=== PATIENT | female | born 1995 ===

== ENCOUNTER 2018-06-04 01:21 | Emergency (ER) | payer OTHER ==
[2018-06-04 01:58] VITALS: BMI 29.0
[2018-06-04] MEDS ORDERED: Bicitra 30 ML UD PO ONE (02:04)
--- NOTE | 2018-06-04 02:59 | OBDCSUM ---
Datetime: 06/04/2018 02:42 Discharged to, Provider: Home Follow up at, Provider: [facility] Disch Instr Activity: Normal activity Disch Instr Diet: Regular Discharge Time: 06/04/2018 02:43 Follow up in weeks, Provider: 06/04/2018 Disch Referrals: None Disch Activity Restrictions: No lifting Discharge Diagnosis Prov Other: epigatric pain
--- NOTE | 2018-06-04 02:59 | OBHP ---
Datetime: 06/04/2018 02:54 IP Adm Impression: Term, intrauterine IP Chief Complaint Other: epigastric pain IP Admit Plan: Observation/Evaluation; Discharge home Admit Comment, IP Provider: Patient is a @ 38 wks with epgastric pain. Patient denies VB, leaki ng, +FM, no cttxns, no antepartum/surgical issues, no medicaltions, no medical problems. VBZ=165 mod yassine, +accels, no decesl, irregular contractions. Patient reported epigastric pain started after eatin g fatty food. VSS, no vomiting, diarrhea. Patient received bicitra and felt better, was discharged ho ma, follow up in clinc today Pelvic Type - PN: Adequate Extremities - PN: Normal Abdomen - PN: Normal Back - PN: Normal Breast - PN: Normal Lungs - PN: Normal Heart - PN: Normal Thyroid - PN: Normal Neurologic - PN: Normal HEENT - PN: Normal General - PN: Normal FHR - Baseline A Provider: 150 Vital Signs Provider: Reviewed; Within Normal Limits NICHD Variability Prov Fetus A: Moderate 6-25bpm NICHD Accel Fetus A IP Provider: 15X15 Genitourinary Exam: Normal DTRs - PN: Normal
[2018-06-04 06:57] VITALS: BP 117/68; PULSE 94
== END 2018-06-04 02:53 | disposition home or self-care (01) ==
LOC: H.EROB2 01:21
DX: O26.93 Pregnancy related conditions, unspecified, third trimester (principal); R10.2 Pelvic and perineal pain; Z3A.38 38 weeks gestation of pregnancy

== ENCOUNTER 2018-07-02 11:34 | Emergency (ER) | payer OTHER ==
[2018-06-25 13:27] VITALS: BMI 29.0
--- NOTE | 2018-07-02 16:01 | OBHP ---
Datetime: 07/02/2018 12:52 IP Adm Impression: Term, intrauterine ; No Active Labor IP Admit Plan: Observation/Evaluation; Discharge home Admit Comment, IP Provider: Pt is a 23 yo female IUP @ 39.6 weeks LYDIA is 07/03/18 based on LMP of 09/26/17 and U/S 11/23/17. Pt here for contractions/abdominal pain since 2AM described as 03/30. Pt say s she noticed some vaginal bleeding which resolved. Pt denies fevers, dizziness, headache, blurry vis ion, chest pain, SOB, nausea, vomiting, diarrhea, constipation, dysuria, Reports good movement. PNP: Dr. 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 Lungs: clear to auscultation bilaterally, no wheezing, rales or rhonchi Abdomen: Gravid LE: negative for edema Bimanual-2cm dilated Heart Rate: 140, moderate 6-25bpm, category 1, 15x15 A/P: Pt is a 23 yo female IUP @ 39.6 weeks here for contractions -Observed in [facility] -Monitor heart tracing -Bimanual 2cm dilated -Not in active labor -D/c home with ED precautions, if contractions occur closer together, ROM, fever, or vaginal bleed ing come back to ED Case reviewed and discussed with Attending Zoe Recinos M.D.-PGY-[address] Connelly: I have evaluated the patient independently and I agree with the above Pelvic Type - PN: Adequate Extremities - PN: Normal Abdomen - PN: Normal Back - PN: Not Done Breast - PN: Not Done Lungs - PN: Normal Heart - PN: Normal Thyroid - PN: Not Done Neurologic - PN: Not Done HEENT - PN: Normal General - PN: Normal FHR - Baseline A Provider: 140 Comments, ACOG Physical Exam: Abdomen: Gravid Bimanual-2cm dilated IP Hx Assessment: The History has been Reviewed and is Current EGA AdmitDate IP: 39.6 Vital Signs Provider: Reviewed; Within Normal Limits IP Chief Complaint: Uterine contractions NICHD Variability Prov Fetus A: Moderate 6-25bpm NICHD Accel Fetus A IP Provider: 15X15 FHR Category Provider Fetus A: Category I NICHD Decel Fetus A IP Provider: None (Annotations: Data stored by CPN on behalf of user) Dilatation, Provider: 2 Genitourinary Exam: Normal DTRs - PN: Not Done
--- NOTE | 2018-07-02 16:03 | OBDCSUM ---
Datetime: 07/02/2018 12:36 Discharged to, Provider: Home Follow up at, Provider: [facility] Disch Instr Activity: Normal activity Disch Instr Diet: Regular Discharge Instructions, Provider: Routine instructions given Discharge Time: 07/02/2018 12:36 Follow up in weeks, Provider: 07/02/18 Disch Referrals: None Contraception discussed, Prov: Yes Discharge Diagnosis Prov Other: false labor
[2018-07-02 17:06] VITALS: BP 127/63; PULSE 82; TEMP 98.8; O2SAT 100
== END 2018-07-02 12:20 | disposition home or self-care (01) ==
LOC: H.EROB2 11:34 → H.EROB 11:57 → H.EROB2 12:20
DX: O26.93 Pregnancy related conditions, unspecified, third trimester (principal); R10.2 Pelvic and perineal pain; O26.853 Spotting complicating pregnancy, third trimester; Z3A.39 39 weeks gestation of pregnancy; O47.1 False labor at or after 37 completed weeks of gestation

== ENCOUNTER 2018-07-03 14:57 | Emergency (ER) | payer OTHER ==
[2018-06-25 13:27] VITALS: BMI 29.0
[2018-07-04 01:17] VITALS: BP 131/87; PULSE 91; RESP 18; TEMP 98.2; O2SAT 99
== END 2018-07-03 15:50 | disposition home or self-care (01) ==
LOC: H.EROB2 14:57
DX: O26.93 Pregnancy related conditions, unspecified, third trimester (principal); R10.2 Pelvic and perineal pain; Z3A.40 40 weeks gestation of pregnancy; O48.0 Post-term pregnancy

== ENCOUNTER 2018-07-04 02:00 | Inpatient (IN) | payer OTHER ==
[2018-07-04 03:23] VITALS: BMI 31.2
[2018-07-04] MEDS ORDERED: Lactated Ringer's 1,000 ML IV ONE (03:47)
[2018-07-04 04:58] VITALS: O2SAT 100
[2018-07-04] MEDS: Lactated Ringer's 1,000 ML IV SCH ×3 (05:20→16:00)
[2018-07-04 05:49] LABS: BASO % 0.1 % (0.0-2.0); LYMPH # 1.1 K/uL (1.0-4.3); LYMPH % 10.8 % (20.0-40.0); MEAN CELL VOLUME 84.8 fl (81.0-99.0); MEAN CORPUSCULAR HEMOGLOBIN 27.5 pg (27.0-31.0); MEAN CORPUSCULAR HGB CONC 32.4 g/dL (33.0-37.0); MEAN PLATELET VOLUME 10.3 fl (7.2-11.7); MONO # 0.4 K/uL (0.0-0.8); MONO % 4.1 % (0.0-10.0); NEUT # 8.7 K/uL (1.8-7.0); NRBC % 0.1 % (0.0-0.0); RBC 4.38 Mil/uL (3.80-5.20); RED CELL DISTRIBUTION WIDTH 13.9 % (11.5-14.5); WHITE BLOOD COUNT 10.3 K/uL (4.8-10.8)
[2018-07-04] MEDS ORDERED: Fentanyl/Bupivacaine HCl 250 ML EPI ONE (07:58)
--- NOTE | 2018-07-04 08:03 | OBADHP ---
Datetime: 07/04/2018 02:57 Admit Comment, IP Provider: [employer]- [id number] 23 y/o at 40.1 wks with LYDIA of 07/03/2018 c/o contractions since 7pm occurring every 7 minute s. She was seen here yesterday for similar complaints, was checked and found to be 2cm dilated. Since then she has noticed some spotting, but denied any loss of fluid. She endorses +FM. She denies any f /c/n/v/d/dysuria. OBGYNhx: current complicated with +chlamydia- treated 06/04 PMH: denies Allergies: NKA Surghx: left ovarian cystectomy in 2014 Sochx: Denies EtOH, cigarette or elicit drug use Gen: patient awake and alert grimacing with pain Cardio: s1s2 RRR Lungs: Resp effort wnl Abd: Gravid, BS+ Pelvic: 2-3cm, 90%, -3 Ext: calves nontender A/P: 23 y/o at 40.1 wks with LYDIA of 07/03/2018 c/o contractions. -Wireless monitoring -Encouraged ambulation -Re-check for cervical progression in 1 hr; if no change discharge home with labor precautions; If change present, admit. -No cervical change, but patient is tearful with pain -Admit to unit with initiation of labor protocol -Nitrous oxide -water enema Patient seen and evaluated with Dr. Iron Gill, PGY-1 OB Hospitalist on-call. With PGY1, I saw this patinet and agree with note MAHNDO Admit for pain management Extremities - PN: Normal Abdomen - PN: Normal Lungs - PN: Normal Heart - PN: Normal General - PN: Normal Presentation-Admit: Vertex FHR - Baseline A Provider: 135 Gestation - Est Wks by US: 40.1 Pool Provider: Negative IP Hx Assessment: The History has been Reviewed and is Current Vital Signs Provider: Reviewed; Within Normal Limits IP Chief Complaint: Uterine contractions NICHD Variability Prov Fetus A: Moderate 6-25bpm NICHD Accel Fetus A IP Provider: 15X15 FHR Category Provider Fetus A: Category I NICHD Decel Fetus A IP Provider: None Dilatation, Provider: 2 Effacement, Provider: 90 Station, Provider: -3 EGA AdmitDate IP: 40.1 IP Adm Impression: Term, intrauterine ; No Active Labor; Intact Membranes IP Admit Plan: Observation/Evaluation Datetime: 07/03/2018 15:45 HEENT - PN: Normal IP Fetus A Comments: Reactive NST Membranes, Provider: Intact Contraction Comments Provider: Q7-8 min Datetime: 07/02/2018 12:52 Pelvic Type - PN: Adequate Back - PN: Not Done Breast - PN: Not Done Thyroid - PN: Not Done Neurologic - PN: Not Done Comments, ACOG Physical Exam: Abdomen: Gravid Bimanual-2cm dilated Genitourinary Exam: Normal DTRs - PN: Not Done Datetime: 06/04/2018 02:54 IP Chief Complaint Other: epigastric pain
[2018-07-04] MEDS ORDERED: Oxytocin 30 UNIT 30 UNITS/500 ML BAG IV ONE (11:23)
[2018-07-04] MEDS: Oxytocin 30 UNIT 30 UNITS/500 ML BAG IV ONE ×2 (11:30→19:20)
[2018-07-04] MEDS ORDERED: OXYTOCIN/0.9 % NS 20 UNIT/1,000 ML BAG IV ONE ×2 (15:15→19:28)
[2018-07-04] MEDS ORDERED: Lidocaine 1% Inj (20ml) ONE (15:16)
[2018-07-04] MEDS ORDERED: Oxycodone/Acetaminophen 5/325 mg Tab PO PRN ×2 (19:28→22:33)
--- NOTE | 2018-07-04 20:05 | OBDS ---
DELIVERY PERSONNEL Nurse Kettle Firer Certified: samara Delivery Doctor: Dr Simpson Scrub Nurse: samara Payloader Operator: MISHEL silva and ALTA ChildressC Anesthesiologist: DR Treadwell Telemetry Monitor: samara Resident: DR Feliciano and DR Downing MATERNAL INFORMATION Delivery Anesthesia: Epidural Medications in Delivery: pitocin Estimated Blood Loss (ml): 150cc Placenta Cultured: No Maternal Complications: None RN Comments: to alive baby boy; 9/9 ; placenta deivered complete;uneventful delivery Provider Comments: Over intact perineum, of live male at 19:04 PM, Weight 3455 gm, 9/9 A PGAR. Head OA delivered first followed with delivery of right anterior shoulder in a controlled april r followed by posterior arm and body. was bulb suctioned nasopharygeally and crying spontaneou sly. Umbilical cord was cut. Skin to skin was done with mother. Placenta was delivered intact spontan eously. Perineum intact. Uterus firm and appropriately hemostatic following delivery. Pt tolerated de livery well. No Complications. QBL 150 mL. Patient and baby remained stable. Case with Dr. Simpson --- John Feliciano MD PGY-2 LABOR SUMMARY EDC: 07/03/2018 00:00 No. Babies in Womb: 0 Attempted: No Labor Anesthesia: Epidural LABOR INFORMATION Onset of Labor: 07/03/2018 05:00 Complete Dilatation: 07/04/2018 17:20 Oxytocin: Augmentation Group B Beta Strep: Negative Antibiotics # of Doses: 1 Antibiotics Time of Last Dose: 0847 azithromycin MEMBRANES Membranes Rupture Method: Artificial Rupture of Membranes: 07/04/2018 14:35 Length of Rupture (hrs): 4.48 Amniotic Fluid Color: Clear Amniotic Fluid Amount: Moderate Amniotic Fluid Odor: Normal STAGES OF LABOR Stage 1 hrs: 36 Stage 1 min: 20 Stage 2 hrs: 1 Stage 2 min: 44 Stage 3 hrs: 0 Stage 3 min: 13 Total Time in Labor hrs: 38 Total Time in Labor min: 17 VAGINAL DELIVERY Episiotomy: None Laceration Extension: N/A Laceration Type: None Laceration Repair: Not Applicable Laceration Repair Note: none Initial Vag Sponge Count: 5 Final Vag Sponge Count: 5 Initial Vag Sharps Count: 1 Final Vag Sharps Count: 1 Sponge Count Correct: Yes Sharps Count Correct: Yes Count Comment: 1 needle BABY A INFORMATION Infant Delivery Date/Time: 07/04/2018 19:04 Method of Delivery: Vaginal Born in Route : No : N/A Forceps: N/A Vacuum Extraction: N/A Shoulder Dystocia : No SHOULDER DYSTOCIA BABY A Delivery Date/Time: 07/04/2018 19:04 PRESENTATION/POSITION BABY A Presentation: Cephalic Cephalic Presentation: Vertex Vertex Position: Left Occipital Anterior Breech Presentation: N/A PLACENTA INFORMATION BABY A Placenta Delivery Time : 07/04/2018 19:17 Placenta Method of Delivery: Spontaneous Placenta Status: Delivered SCORES BABY A Heart Rate 1 min: >100 bpm Resp Effort 1 min: Good Cry Reflex Irritability 1 min: Cough or Sneeze or Pulls Away Muscle Tone 1 min: Active Motion Color 1 min: Body Luis M. Cintron, Extremities Blue SCORE 1 MIN: 9 Heart Rate 5 min: >100 bpm Resp Effort 5 min: Good Cry Reflex Irritability 5 min: Cough or Sneeze or Pulls Away Muscle Tone 5 min: Active Motion Color 5 min: Body Luis M. Cintron, Extremities Blue SCORE 5 MIN: 9 INFORMATION BABY A Gestational Age at Delivery: 40.0 Gestational Status: Term Outcome : Liveborn Condition : Stable Infant Sex: Male IDENTIFICATION/MEDS BABY A ID Band Number: [id number] ID Band Location: Right Leg; Right Arm CORD INFORMATION BABY A No. Cord Vessels: 3 Nuchal Cord : N/A Nuchal Cord Other: na True Knot: na Infant Cord pH Baby Arterial: na Cord pH Baby Venous: na Cord Blood Taken: Yes Banking/Donate Info: na Suction: None
[2018-07-04] MEDS ORDERED: Lactated Ringer's 1,000 ML IV SCH (22:33)
[2018-07-05] MEDS ORDERED: Hepatitis B Vaccine 20 mcg/mL Inj IM ONE (06:35)
[2018-07-05 06:49] LABS: BASO % 0.2 % (0.0-2.0); EOS % 0.1 % (0.0-4.0); HEMOGLOBIN 9.7 g/dL (12.0-16.0); LYMPH # 1.7 K/uL (1.0-4.3); MEAN CELL VOLUME 86.9 fl (81.0-99.0); MEAN CORPUSCULAR HEMOGLOBIN 27.8 pg (27.0-31.0); MEAN PLATELET VOLUME 9.9 fl (7.2-11.7); MONO # 0.9 K/uL (0.0-0.8); MONO % 6.2 % (0.0-10.0); NEUT # 12.5 K/uL (1.8-7.0); NEUT % 82.5 % (50.0-75.0); NRBC % 0.1 % (0.0-0.0); RBC 3.49 Mil/uL (3.80-5.20); RED CELL DISTRIBUTION WIDTH 13.9 % (11.5-14.5); WHITE BLOOD COUNT 15.2 K/uL (4.8-10.8)
[2018-07-05] MEDS ORDERED: Multivitamin With Minerals Tab PO SCH (09:00)
--- NOTE | 2018-07-05 09:31 | OBPPN ---
Datetime: 07/05/2018 06:20 PP Pain Prov: Within normal limits PP Nausea Prov: Denies PP Flatus Prov: Yes PP BM Prov: No PP Heart Prov: Normal PP Lungs Prov: Normal PP Abdomen/Uterus Prov: Normal PP Lochia Prov: Normal PP Extremities Prov: Normal PP Impression Prov: Normal progression PP Plan Prov: Continue present management PP Progress Note Prov: 3 y/o PPD1 s/p on 07/04/2018 @ 17:04. Pt was seen and examined this AM. Pain is well tolerated. Fundus @ level of umbilicus. Lochia like menses. +BM _ +flatus. Pt is w/o complaint s. She denies any f/c/n/v/d. VS:stable Gen: laying in supine position, awake _ on phone, breathing comfortably Cardio: s1s2, no murmurs Lungs: Respiratory effort wnl Abd: BS+, appropriate tenderness EXT: nonedematous, calves nontender A/P: 23 y/o PPD1 s/p on 07/04/2018 @ 17:04. -Encouraged ambulating. -Continue Motrin 600mg for mild pain prn. -SCDs for DVT prophylaxis. -Anticipated discharge 07/06/2018. Case discussed with attending -DEVAN Linares JP, PGY-1 Attending addendum: I saw and examined the patient at bedside myself. I reviewed the resident note above and agree wit h findigs and management. Requests circumcision for baby boy today. Anticipate DC home tomorrow. Cristina Keenan MD Vital Signs Provider PP: Reviewed; Within Normal Limits
[2018-07-05] MEDS: Multivitamin With Minerals Tab PO SCH (11:21)
[2018-07-05] MEDS ORDERED: Oxytocin 30 UNIT 30 UNITS/500 ML BAG IV ONE (12:20)
--- NOTE | 2018-07-06 08:30 | OBDCSUM ---
Datetime: 07/06/2018 08:28 Discharged to, Provider: Home Follow up at, Provider: [facility] Disch Instr Activity: Normal activity Disch Instr Diet: Regular Discharge Instructions, Provider: Routine instructions given Follow up in weeks, Provider: 4-6WKS Disch Referrals: None Disch Activity Restrictions: No sexual activity; Nothing in vagina - Paton, tampons, douche Discharge Comment, Provider: Attending addendum: I saw and examined the patient myself at bedside this morning. I reviewed the resident note above and agree with findings and management. DC home today. Cristina Keenan MD Contraception after Delivery: IUD Datetime: 07/03/2018 15:44 Follow up in weeks, Provider: 4-6 weeks Contraception after Delivery: IUD
--- NOTE | 2018-07-06 08:30 | OBPPN ---
Datetime: 07/06/2018 05:42 PP Pain Prov: Within normal limits PP Nausea Prov: Denies PP Flatus Prov: Yes PP BM Prov: No PP Heart Prov: Normal PP Lungs Prov: Normal PP Abdomen/Uterus Prov: Normal PP Lochia Prov: Normal PP Extremities Prov: Normal PP Impression Prov: Normal progression PP Plan Prov: Continue present management; Discharge PP Progress Note Prov: [facility] - [id number] 23 y/o PPD 2 s/p seen and examined this AM. Pain well tolerated, ambulating _ eating reg diet, lochia like menses, + flatus, +BM, continued . Denies any f/c/n/v/d, chest discom fort or difficulty breathing. VS: stable Gen: sitting upright in chair Cardio: s1s2 no murmurs Lungs: cta b/l, no wheeze Abd: BS +, fundus @ umbilicus, appropriate tenderness Ext: nonedematous A/P:23 y/o PPD 2 s/p - encouraged -Ambulation as tolerated encouraged -Ibuprofen as needed for pain -Discharge today Case discussed with attending -DEVAN Linares JP, PGY-1 Attending addendum: I saw and examined the patient myself at bedside this morning. I reviewed the resident note above and agree with findings and management. DC home today. Cristina Keenan MD Vital Signs Provider PP: Reviewed; Within Normal Limits
[2018-07-06] MEDS: Multivitamin With Minerals Tab PO SCH (09:51)
[2018-07-06 19:43] VITALS: BP 107/64; PULSE 81; RESP 21; TEMP 98.3
== END 2018-07-06 15:10 | disposition home or self-care (01) | DRG 560 ==
LOC: H.EROB2 02:00 → H.L&D 03:48 → H.OB/GYN 21:17
PROVIDERS: ADMIT Obstetrics & Gynecology; ATTEND Obstetrics & Gynecology
PROC: 10E0XZZ Delivery of Products of Conception, External Approach (ICD-10-PCS; principal; 2018-07-04)
PROC: 4A1HXCZ Monitoring of Products of Conception, Cardiac Rate, External Approach (ICD-10-PCS; 2018-07-04)
DX: O80 Encounter for full-term uncomplicated delivery (principal); Z37.0 Single live birth; Z3A.40 40 weeks gestation of pregnancy